=== PATIENT | female | born 1995 | race Caucasian/White ===

== ENCOUNTER 2021-07-12 05:59 | Inpatient (IN) ==
[2021-07-12] MEDS ORDERED: EPHEDrine 50 MG/ML VIAL IVP PRN ×2 (06:08→07:22)
[2021-07-12] MEDS ORDERED: Famotidine 20 MG/2 ML VIAL IVP PRN (07:00)
[2021-07-12] MEDS ORDERED: Lidocaine 1% 20 ML MDV INFILT PRN (07:00)
[2021-07-12] MEDS ORDERED: *HR* Nalbuphine 10 MG/ML AMPUL IV PRN (07:00)
[2021-07-12] MEDS ORDERED: Ringers Solution, Lactated 1,000 ML IVC SCH (07:00)
[2021-07-12] MEDS ORDERED: Metoclopramide 10 MG/2 ML VIAL IVP PRN (07:00)
[2021-07-12] MEDS ORDERED: Ondansetron 4 MG/2 ML VIAL IVP PRN (07:00)
[2021-07-12] MEDS ORDERED: *HR* FentaNYL (PF) 100 MCG/2 ML VIAL EP ONE (07:22)
[2021-07-12] MEDS ORDERED: *HR* FentaNYL (PF) 250 MCG/5 ML VIAL ONE ×2 (07:26→16:43)
[2021-07-12 07:32] LABS: Basophils % 0.3 %; Eosinophils # 0.1 K/mcL (0.0-0.6); Eosinophils % 1.3 %; Hematocrit 37.1 % (35.3-44.9); Hemoglobin 12.4 g/dL (11.5-15.4); Immature Granulocytes % 0.5 % (0-4); Lymphocytes # 1.3 K/mcL (0.6-4.6); Mean Corpuscular HGB Conc 33.4 g/dL (31.6-35.5); Mean Corpuscular Hemoglobin 31.4 pg (28.0-33.3); Mean Corpuscular Volume 93.9 fL (83.0-100.0); Mean Platelet Volume 9.3 fL (9.4-12.4); Monocytes # 0.9 K/mcL (0.0-1.3); Monocytes % 8.6 %; Neutrophils # 7.7 K/mcL (1.6-8.9); Platelet Count 243 K/mcL (140-400); Red Blood Count 3.95 M/mcL (3.82-4.97); Red Cell Distribution Width 12.7 % (11.5-14.5); Segmented Neutrophils % 76.3 %; White Blood Count 10.1 K/mcL (4.3-11.1)
[2021-07-12] MEDS ORDERED: miSOPROStoL 25 MCG TABLET PO PRN (08:30)
[2021-07-12 10:20] LABS: Amphetamine Screen,Urine Negative ng/mL (Cutoff=1000); Barbiturate Screen,Urine Negative ng/mL (Cutoff=200); Benzodiazepines Screen,Urine Negative ng/mL (Cutoff=200); Cannabinoid Screen,Urine Negative ng/mL (Cutoff = 50); Cocaine Screen,Urine Negative ng/mL (Cutoff= 300); Opiate Screen,Urine Negative ng/mL (Cutoff=300); Phencyclidine Screen,Urine Negative ng/mL (Cutoff=25)
[2021-07-12 11:05] LABS: Influenza A PCR Negative (Negative); Influenza B PCR Negative (Negative); Resp. Syncytial Virus PCR Negative (Negative); SARS-CoV-2 by PCR (In House) Negative (Negative)
[2021-07-12] MEDS: Oxytocin 20 units/ LR 1000 mL 20 UNIT/1,000 ML BAG IVC SCH (17:38)
[2021-07-12] MEDS ORDERED: *HR* FentaNYL (PF) 100 MCG/2 ML VIAL ONE (19:30)
[2021-07-12] MEDS: Epidural Premix (fent/bupiv) 110 ML EP SCH (19:50)
[2021-07-13] MEDS: Epidural Premix (fent/bupiv) 110 ML EP SCH (02:17)
[2021-07-13] MEDS ORDERED: Acetaminophen 325 MG TABLET PO ONE (03:46)
[2021-07-13] MEDS: Oxytocin 20 units/ LR 1000 mL 20 UNIT/1,000 ML BAG IVC SCH (05:24)
[2021-07-13] MEDS ORDERED: *HR* FentaNYL (PF) 100 MCG/2 ML VIAL ONE (06:10)
[2021-07-13] MEDS ORDERED: Oxytocin 20 units/ LR 1000 mL 20 UNIT/1,000 ML BAG IVC ONE (06:14)
[2021-07-13] MEDS ORDERED: Lanolin 7 G OINT...G. TP PRN (06:14)
[2021-07-13] MEDS ORDERED: Benzocaine/Menthol 56 GM AEROSOL SPRAY TP PRN (06:14)
[2021-07-13] MEDS ORDERED: Oxytocin 20 units/ LR 1000 mL 20 UNIT/1,000 ML BAG IVC SCH (06:14)
[2021-07-13] MEDS: Ibuprofen 600 MG TABLET PO PRN ×2 (07:02→16:46)
[2021-07-13] MEDS: Prenatal Vit/FA 1 EACH TABLET PO SCH (09:36)
[2021-07-13] MEDS: Acetaminophen 325 MG TABLET PO PRN ×2 (09:37→18:31)
[2021-07-14] MEDS: Ibuprofen 600 MG TABLET PO PRN (04:10)
[2021-07-14 05:36] VITALS: TEMP 97.8; O2SAT 97
[2021-07-14 08:01] VITALS: BP 105/68; PULSE 75
[2021-07-14] MEDS: Prenatal Vit/FA 1 EACH TABLET PO SCH (09:11)
== END 2021-07-14 10:15 | disposition home or self-care (01) | DRG 560 ==
LOC: 1NENULAB 05:59 → 1NENUOBS 07-13 06:52
PROVIDERS: ADMIT Advanced Practice Midwife; ATTEND Advanced Practice Midwife